=== PATIENT | female | born 1945 ===

== ENCOUNTER 2023-06-15 11:13 | Emergency (ER) | payer MEDICARE, BC ==
[2023-06-15 11:33] LABS: BILIRUBIN,URINE NEGATIVE (NEGATIVE); GLUCOSE, URINE (UA) NEGATIVE (NEGATIVE); KETONES,URINE (UA) TRACE mg/dL (NEGATIVE); LEUKOCYTE ESTERASE, URINE SMALL (NEGATIVE); NITRITE,URINE POSITIVE (NEGATIVE); OCCULT BLOOD,URINE SMALL (NEGATIVE); PROTEIN,URINE 30 mg/dL (NEGATIVE); UROBILINOGEN,URINE 0.2 (NORMAL) E.U./dL (NORMAL)
[2023-06-15 11:36] LABS: CLARITY,URINE CLOUDY (CLEAR)
[2023-06-15 11:39] LABS: BACTERIA,URINE Many /HPF (None Seen); RBC,URINE 0-5 /HPF (0-5); SQUAMOUS EPITHELIAL CELL,UR FEW Squamous (<= Few); WBC,URINE >25 /HPF (0-5)
[2023-06-15 11:52] LABS: BASOPHILS # (AUTO) 0.1 10^3/uL (0.0-0.1); BASOPHILS % (AUTO) 0.4 %; EOSINOPHILS # (AUTO) 0.1 10^3/uL (0.0-0.7); HCT - HEMATOCRIT 35.2 % (37.0-47.0); HGB - HEMOGLOBIN 11.7 g/dL (12.0-16.0); LYMPHOCYTES % (AUTO) 6.6 %; MEAN CORPUSCULAR HEMOGLOBIN 30.7 pg (27.0-31.0); MEAN CORPUSCULAR HGB CONC 33.2 g/dL (32.0-36.0); MEAN CORPUSCULAR VOLUME 92.4 fL (81.0-99.0); MEAN PLATELET VOLUME 8.7 fL (7.9-10.8); MONOCYTES # (AUTO) 1.6 10^3/uL (0.0-1.0); MONOCYTES % (AUTO) 10.8 %; NEUTROPHILS # (AUTO) 11.7 10^3/uL (1.5-6.6); NEUTROPHILS % (AUTO) 80.9 %; PLT - PLATELET COUNT 364 10^3/uL (130-450); RED BLOOD COUNT 3.81 10^6/uL (4.20-5.40); RED CELL DISTRIBUTION WIDTH 17.3 % (12.0-15.0); WHITE BLOOD COUNT 14.5 x10^3/uL (4.8-10.8)
[2023-06-15] MEDS ORDERED: SODIUM CHLORIDE 0.9% 1,000 ML IV STA (11:56)
--- NOTE | 2023-06-15 11:57 | ED Physician Documentation ---
History of Present Illness - Stated complaint Stated Complaint: - Chief complaint Chief Complaint: General - Additonal information Additional information: 77-year-old female presents to the emergency department for evaluation of dysuria and urinary urgency. The symptoms began 2 days ago when she completed her course of cephalexin for E. coli urinary tract infection. 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 She did not tolerate chemotherapy secondary to side effects. Patient was seen initially in this emergency department on June 02 for fatigue and urinary symptoms. At that time of the ED visit she received IV hydration. A urinalysis was suggestive of a urinary tract infection and she was given a gram of ceftriaxone. Patient was scheduled to follow-up with her oncologist the following day but it does not appear that antibiotics were ordered at the time of [place] [facility] [place]. Subsequently urine culture revealed a eaton sensitive E. coli for which I electronically ordered cephalexin on 05 June. Patient completed a 7-day course on June 13. She reports that while taking the antibiotics she had no urinary symptoms but about 12 hours after completing the course she began to have some dysuria urgency and vague left-sided belly and flank pain. She denies fevers or vomiting. Patient is scheduled to see hematology this upcoming week and had orders for CT imaging pending. I presentation the emergency department she is alert and very well-appearing. She has no fever, tachycardia or hypotension noted. Review of Systems Constitutional: denies: Fever Cardiac: denies: Chest pain / pressure, Palpitations Respiratory: denies: Dyspnea GI: reports: Abdominal Pain : reports: Dysuria, Frequency Skin: reports: Reviewed and negative Musculoskeletal: reports: Reviewed and negative PD PAST MEDICAL HISTORY - Present Medications Home Medications: Ambulatory Orders Medication Instructions Recorded Confirmed Ascorbic Acid [Vitamin C] 1,000 mg PO DAILY 04/15/23 06/03/23 Aspirin [Aspirin Regimen] 81 mg PO DAILY PM 04/15/23 06/03/23 Biotin [Pbun-Lvgg-Bijkq] 5,000 mcg PO BID 04/15/23 06/03/23 Calcium Carbonate [Calcium] 600 mg PO BID 04/15/23 06/03/23 Cholecalciferol (Vitamin D3) 50 mcg PO BID 04/15/23 06/03/23 [Vitamin D3] Losartan Potassium 25 mg PO DAILY 04/15/23 06/03/23 Magnesium 250 mg PO DAILY 04/15/23 06/03/23 Magnesium 250 mg PO DAILY 04/15/23 06/03/23 [place]-3/Dha/Epa/Fish Oil [Fish Oil 1 each PO DAILY 04/15/23 06/03/23 1,000 mg Softgel] Pramipexole Di-HCl [Mirapex] 0.125 mg PO UD 04/15/23 06/03/23 Vitamin E (Dl,Tocopheryl Acet) 180 mg PO DAILY 04/15/23 06/03/23 [Vitamin E] glucosamine HCL [Glucosamine HCl] 1,500 mg PO DAILY 04/15/23 06/03/23 Ondansetron [Ondansetron Odt] 8 mg PO Q6HR 05/28/23 06/03/23 cephALEXin [Keflex] 500 mg PO BID #14 cap 06/05/23 Amox/Clav 875/125 [Augmentin] 1 each PO Q12H #20 tablet 06/15/23 Ciprofloxacin HCl [Cipro] 500 mg PO BID #20 tablet 06/15/23 - Allergies Allergies/Adverse Reactions: Allergies Allergy/AdvReac Type Severity Reaction Status Date / Time oxaliplatin AdvReac Intermediate SOA/Blurred Verified 06/15/23 12:11 Vision/Throat swelling metronidazole [From Flagyl] AdvReac Unknown Verified 06/15/23 12:11 Sulfa (Sulfonamide AdvReac Unknown Verified 06/15/23 12:11 Antibiotics) PD ED PE NORMAL - General General: Alert and oriented X 3, No acute distress, Well developed/nourished - HEENT HEENT: Atraumatic, Moist mucous membranes - Neck Neck: Supple, no meningeal sign, No adenopathy - Cardiac Cardiac: RRR, No murmur - Respiratory Respiratory: No respiratory distress, Clear bilaterally - Abdomen Abdomen: Normal bowel sounds, Soft, Non tender (Very vague nonspecific nonperitoneal left-sided abdominal tenderness without guarding or rebound. No CVA tenderness elicited.) - Back Back: No CVA TTP - Derm Derm: Warm and dry - Extremities Extremities: No deformity - Neuro Neuro: Alert and oriented X 3 Eye Opening: Spontaneous Motor: Obeys Commands Verbal: Oriented GCS Score: 15 Results - Vitals Vitals: Vital Signs - 24 hr 06/15/23 06/15/23 11:24 13:16 Temperature 36.1 C L 35.8 C L Heart Rate 91 73 Respiratory 18 18 Rate Blood Pressure 128/82 H 94/58 L O2 Saturation 99 99 Oxygen O2 Source Room air - Labs Labs: Laboratory Tests 06/15/23 06/15/23 06/15/23 11:28 11:45 11:45 WBC 14.5 H RBC 3.81 L Hgb 11.7 L Hct 35.2 L MCV 92.4 MCH 30.7 MCHC 33.2 RDW 17.3 H Plt Count 364 MPV 8.7 Neut # (Auto) 11.7 H Lymph # (Auto) 1.0 L [place] # (Auto) 1.6 H Eos # (Auto) 0.1 Baso # (Auto) 0.1 Absolute Nucleated RBC 0.00 Nucleated RBC % 0.0 Sodium 131 L Potassium 3.8 Chloride 99 L Carbon Dioxide 26 Anion Gap 6.0 BUN 8 Creatinine 0.5 L Estimated GFR (MDRD) 120 Glucose 198 H Calcium 9.1 Total Bilirubin 0.5 AST 16 ALT 18 Alkaline Phosphatase 77 Total Protein 5.9 L Albumin 3.4 Globulin 2.5 Albumin/Globulin Ratio 1.4 Lipase 127 H Urine Color DARK YELLOW Urine Clarity CLOUDY Urine pH 6.0 Ur Specific [place] 1.025 Urine Protein 30 H Urine Glucose (UA) NEGATIVE Urine Ketones TRACE Urine Occult Blood SMALL H Urine Nitrite POSITIVE H Urine Bilirubin NEGATIVE Urine Urobilinogen 0.2 (NORMAL) Ur Leukocyte Esterase SMALL H Urine RBC 0-5 Urine WBC >25 H Ur Squamous Epith Cells FEW Squamous Urine Bacteria Many H Ur Microscopic Review INDICATED Urine Culture Comments INDICATED - Rads (name of study) CT abd pelvis w Relevant Findings:: Final report received CT chest Relevant Findings:: Final report received (Few nonspecific scattered pulmonary micronodules measuring less than 2 mm nonspecific. No evidence of metastatic disease within the chest.) PD Medical Decision Making - ED course Complexity details: reviewed results, re-evaluated patient, d/w patient ED course: As per the initial HPI 77-year-old female who has a history of adenocarcinoma of the appendix requiring bowel resection presents to the emergency department for urinary urgency frequency and left-sided abdominal pain. She was treated for an E. coli UTI starting on 05 June and completed a week of medication. Today in the emergency department she is alert and well-appearing. There is no fever. No tachycardia or hypotension. I did obtain CBC, electrolytes and urinalysis. Per my interpretation there is mild leukocytosis white count of 14,000. She does have some mild electrolyte derangement with sodium of 131 but essentially unchanged from baseline. Normal BUN and creatinine. Her blood glucose was 198 again on par with baseline. Her urinalysis was consistent with acute cystitis. Nitrite positive large amount of bacteria and WBCs. Does not appear contaminated. Culture is pending. Given the history of cancer and recurrent urinary symptoms with left-sided abdominal pain despite recent course of antibiotics we did elect to pursue CT imaging of the abdomen and pelvis which shows diverticulitis of the descending colon. No evidence of abscess or perforation. There was also incidental note made of fluid-filled small bowel loops that could be consistent with an ileus or small bowel obstruction. However I have low suspicion for ileus or bowel obstruction given that the patient has no vomiting or tenderness on the right side of the abdomen. I am in order to treat the urinary tract infection and diverticulitis she will be started on Augmentin and Cipro given her allergy profile and intolerance of Flagyl in the past. She is advised to clear liquid diet for the next 24 to 48 hours. We discussed the emergent return precautions which would include fevers, vomiting, increased pain on the left side of the abdomen or the development of new pain on the right side of the abdomen. She will continue to follow closely with her oncologist and PCP. Departure - Departure Disposition: 01 Home, Self Care Clinical Impression: Diverticulitis, History of malignant neoplasm of appendix Acute cystitis Qualifiers: Hematuria presence: without hematuria Qualified Code(s): N30.00 - Acute cystitis without hematuria Condition: Stable Record reviewed to determine appropriate education?: Yes Follow-Up: RAMSES EPPERSON MD [Primary Care Provider] - Prescriptions: Amox/Clav 875/125 [Augmentin] 1 each PO Q12H #20 tablet Ciprofloxacin HCl [Cipro] 500 mg PO BID #20 tablet Comments: Kelsey your labs today show that you continue to have a urinary tract infection. Because the Keflex did not cure the infection you should be started on a new antibiotic. The CT scan today however does show that you have diverticulitis of your descending colon. This is in the area of your abdomen where you are tender. In order to treat both the infection of the colon as well as the urine we will be starting you on 2 antibiotics. 1 is Cipro which she will take twice a day and the other is Augmentin which she will also take twice a day. Both of these antibiotics can cause diarrhea. I recommend that you take lactobacillus each day about a half an hour after taking the antibiotics. Please let your oncologist know that you had CT imaging of the chest abdomen and pelvis today while in the emergency department. Giving the findings of the diverticulitis they may elect to have a repeat CT scan done in several weeks to ensure resolution of this process. As also discussed at the bedside it does suggest that there is an ileus of the small bowel near where you had your surgery and resection. Over the next 24 hours I would like you to do a clear liquid diet. With the finding of diverticulitis it may be important to have a repeat colonoscopy after this flare has resolved to ensure that there is no mass or malignancy causing the diverticulitis which cannot always be seen on CAT scan. If at any point you find that you are having increasing pain especially on the left side, develop new pain especially on the right side of the abdomen, have any fevers or uncontrolled vomiting you do need to return immediately to the ER. Forms: PCP List
[2023-06-15 12:09] LABS: ALBUMIN 3.4 g/dL (3.2-5.5); ALBUMIN/GLOBULIN RATIO 1.4 (1.0-2.2); BILIRUBIN,TOTAL 0.5 mg/dL (0.2-1.0); CALCIUM 9.1 mg/dL (8.5-10.3); CREATININE 0.5 mg/dL (0.6-1.3); POTASSIUM 3.8 mmol/L (3.5-4.5); TOTAL PROTEIN 5.9 g/dL (6.4-8.9)
[2023-06-15] MEDS ORDERED: cefTRIAXone 1 GM VIAL IVP STA (12:24)
[2023-06-15] MEDS ORDERED: iohexoL-300 100 ML VIAL IVP ONE (13:16)
--- NOTE | 2023-06-15 13:37 | CT Report ---
PROCEDURE: CHEST W INDICATIONS: cancer CONTRAST: 100ml omni 300 TECHNIQUE: After the administration of intravenous contrast, 1 mm axial images were acquired from the pulmonary apices through the posterior costophrenic angles. Axial 5 mm soft tissue kernel reconstructions were performed as well as 8 mm axial MIP and coronal and sagittal 5 mm reformations. For radiation dose reduction, the following was used: automated exposure control, adjustment of mA and/or kV according to patient size. COMPARISON: None. FINDINGS: Image quality: Excellent. Lungs and pleura: No consolidation. Biapical pleural-parenchymal scarring. Mild dependent atelectasis . No pleural effusions. No pneumothorax. There are a few scattered pulmonary micronodules measuring less than 2 mm. Mediastinum: Heart size is normal. No pericardial effusion. No large vessel abnormality. No mediastin al adenopathy by size criteria. Right chest wall Port-A-Cath. Small hiatal hernia. Chest wall and lower neck: Thyroid is unremarkable. No axillary or supraclavicular adenopathy by size . Bones: No aggressive osseous abnormality. Upper Abdomen: Refer to separately dictated CT of the abdomen and pelvis. IMPRESSION: 1.There are a few nonspecific scattered pulmonary micronodules measuring less than 2 mm, nonspecific. 2.No definite evidence of metastatic disease within the chest. Reviewed by: Santana Lockett MD on 06/15/2023 1:36 PM PDT Approved by: Santana Lockett MD on 06/15/2023 1:36 PM PDT Station ID: [id number]
--- NOTE | 2023-06-15 13:45 | CT Report ---
PROCEDURE: ABDOMEN/PELVIS W INDICATIONS: hx of adenocarcinoma with mets and resection CONTRAST: 100ml omni 300 TECHNIQUE: After the administration of intravenous contrast, 5 mm thick sections acquired from the diaphragms to the symphysis. 5 mm thick coronal and sagittal reformats were acquired. For radiation dose reducti on, the following was used: automated exposure control, adjustment of mA and/or kV according to mariaelena ent size. COMPARISON: None FINDINGS: Image quality: Excellent. Lung bases and heart: Refer to separately dictated CT of the chest. Liver: There is a 7 mm hypodensity in the left hepatic lobe which is nonspecific (2/21). Additional i ll-defined subcentimeter hepatic hypodensities along the inferior right hepatic lobe are indeterminat e (2/40, 41). Scattered hepatic simple cysts are noted. Gallbladder and biliary tree: No radiopaque stones or wall thickening. No biliary dilation. Spleen: No splenomegaly. Pancreas: No pancreatic ductal dilation. Adrenals: No adrenal nodule. Kidneys and ureters: No hydronephrosis. No renal cystic lesion which requires follow up. No solid mas s. Bowel and peritoneum: Scattered diverticula. There is wall thickening and surrounding inflammatory ch anges of the descending colon, consistent with acute diverticulitis. No extraluminal gas or organized fluid collections. Prominent fluid-filled small bowel in the right lower quadrant and pelvis measuri ng up to 2.4 cm. Postsurgical changes of the cecum. Lymph nodes: No central or retroperitoneal adenopathy. Vessels: No infrarenal aortic aneurysm. Atherosclerotic vascular calcifications. PELVIS Reproductive organs: Unremarkable. Bladder: No abnormal wall thickening, accounting for underdistension. Pelvic lymph nodes: No pelvic adenopathy by size criteria. Bones: No aggressive osseous abnormality. Other: No significant ventral or inguinal hernia. IMPRESSION: 1.Acute diverticulitis of the descending colon. No actual gas or organized fluid collections. 2.Prominent fluid-filled loops of small bowel within the right lower quadrant and pelvis without esteban sition point. The prominent loops of small bowel extend to the resection site at the cecum. Findings are nonspecific and may represent ileus, partial obstruction is not entirely excluded and clinical co rrelation is recommended. 3.Indeterminate subcentimeter hypodensities within the liver, may represent simple cysts however meta static disease is not excluded and attention on follow-up is recommended. Reviewed by: Santana Lockett MD on 06/15/2023 1:44 PM PDT Approved by: Santana Lockett MD on 06/15/2023 1:44 PM PDT Station ID: [id number]
[2023-06-15 13:56] VITALS: BP 128/92; O2SAT 97
== END 2023-06-15 14:23 | disposition home or self-care (01) ==
LOC: ED 11:13
DX: N30.00 Acute cystitis without hematuria (principal); K57.92 Diverticulitis of intestine, part unspecified, without perforation or abscess without bleeding; C18.1 Malignant neoplasm of appendix; Z79.82 Long term (current) use of aspirin; Z79.899 Other long term (current) drug therapy
CPT/HCPCS: 36415; 71260; 74177; 80053; 81001; 83690; 85025; 87040; 87086; 87181; 96374; 96375; 99284; Q9967; 81003

== ENCOUNTER 2024-04-06 19:21 | Emergency (ER) | payer MEDICARE, BC ==
[2024-04-06 20:24] LABS: BASOPHILS % (AUTO) 0.1 %; EOSINOPHILS % (AUTO) 0.1 %; HGB - HEMOGLOBIN 10.2 g/dL (12.0-16.0); LYMPHOCYTES # (AUTO) 0.4 10^3/uL (1.5-3.5); LYMPHOCYTES % (AUTO) 4.8 %; MEAN CORPUSCULAR HEMOGLOBIN 27.9 pg (27.0-31.0); MEAN CORPUSCULAR HGB CONC 31.9 g/dL (32.0-36.0); MEAN CORPUSCULAR VOLUME 87.7 fL (81.0-99.0); MEAN PLATELET VOLUME 8.5 fL (7.9-10.8); MONOCYTES # (AUTO) 0.7 10^3/uL (0.0-1.0); MONOCYTES % (AUTO) 8.2 %; NEUTROPHILS # (AUTO) 7.6 10^3/uL (1.5-6.6); NEUTROPHILS % (AUTO) 86.6 %; PLT - PLATELET COUNT 291 10^3/uL (130-450); RED BLOOD COUNT 3.65 10^6/uL (4.20-5.40); RED CELL DISTRIBUTION WIDTH 13.3 % (12.0-15.0); WHITE BLOOD COUNT 8.7 x10^3/uL (4.8-10.8)
[2024-04-06 20:42] LABS: ALBUMIN 3.8 g/dL (3.2-5.5); ALBUMIN/GLOBULIN RATIO 1.6 (1.0-2.2); BILIRUBIN,TOTAL 0.3 mg/dL (0.2-1.0); CALCIUM 8.8 mg/dL (8.5-10.3); CREATININE 0.6 mg/dL (0.6-1.3); POTASSIUM 3.6 mmol/L (3.5-4.5); TOTAL PROTEIN 6.2 g/dL (6.4-8.9)
[2024-04-06 20:45] LABS: TROPONIN I HIGH SENSITIVITY 5.1 ng/L (2.3-14.8)
[2024-04-06] MEDS: SODIUM CHLORIDE 0.9% 1,000 ML IV STA (22:03)
[2024-04-06 22:18] LABS: B. PARAPERTUSSIS- RESP PCR PAN NOT DETECTED; B. PERTUSSIS- RESP PCR PANEL NOT DETECTED; C. PNEUMONIAE- RESP PCR PANEL NOT DETECTED; CORONAVIRUS 229E-RESP PCR NOT DETECTED; CORONAVIRUS HKU1-RESP PCR NOT DETECTED; CORONAVIRUS NL63-RESP PCR NOT DETECTED; CORONAVIRUS OC43-RESP PCR NOT DETECTED; HUMAN METAPNEUMOVIRUS NOT DETECTED; INFLUENZA A H3- RESP PCR PANEL DETECTED; INFLUENZA B - RESP PCR PANEL NOT DETECTED; M. PNEUMONIAE- RESP PCR PANEL NOT DETECTED; PARAINFLUENZA VIRUS 1 NOT DETECTED; PARAINFLUENZA VIRUS 2 NOT DETECTED; PARAINFLUENZA VIRUS 3 NOT DETECTED; PARAINFLUENZA VIRUS 4 NOT DETECTED; RHINOVIRUS/ENTEROVIRUS NOT DETECTED; RSV- RESP PCR PANEL NOT DETECTED; SARS-CoV-2 -RESP PCR PANEL NOT DETECTED
--- NOTE | 2024-04-06 22:42 | ED Physician Documentation ---
History of Present Illness - Stated complaint Stated Complaint: COUGH/FEVER - Chief complaint Chief Complaint: Resp - History obtained from History obtained from: Patient - Additonal information Additional information: HPI from patient. Patient c/o productive cough, chest congestion, generalized weakness. Symptoms started 2-3 days ago. Denies fever but has not taken temperature at home. Patient is scheduled to start chemotherapy this coming Friday. 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 - Present Medications Home Medications: Ambulatory Orders Medication Instructions Recorded Confirmed Ascorbic Acid [Vitamin C] 1,000 mg PO DAILY 04/15/23 02/24/24 Aspirin [Aspirin Regimen] 81 mg PO DAILY PM 04/15/23 02/24/24 Biotin [Nqan-Yzku-Zpooc] 5,000 mcg PO BID 04/15/23 02/24/24 Calcium Carbonate [Calcium] 600 mg PO BID 04/15/23 02/24/24 Cholecalciferol (Vitamin D3) 50 mcg PO BID 04/15/23 02/24/24 [Vitamin D3] Losartan Potassium 25 mg PO DAILY 04/15/23 02/24/24 Magnesium 250 mg PO DAILY 04/15/23 02/24/24 Magnesium 250 mg PO DAILY 04/15/23 02/24/24 [place]-3/Dha/Epa/Fish Oil [Fish Oil 1 each PO DAILY 04/15/23 02/24/24 1,000 mg Softgel] Pramipexole Di-HCl [Mirapex] 0.125 mg PO UD 04/15/23 02/24/24 Vitamin E (Dl,Tocopheryl Acet) 180 mg PO DAILY 04/15/23 02/24/24 [Vitamin E] glucosamine HCL [Glucosamine HCl] 1,500 mg PO DAILY 04/15/23 02/24/24 Ondansetron [Ondansetron Odt] 8 mg PO Q6HR 05/28/23 02/24/24 Ondansetron Odt [Zofran Odt] 4 mg TL Q6H PRN #10 tablet 04/07/24 Oseltamivir [Tamiflu] 75 mg PO BID #9 cap 04/07/24 - Allergies Allergies/Adverse Reactions: Allergies Allergy/AdvReac Type Severity Reaction Status Date / Time oxaliplatin AdvReac Intermediate SOA/Blurred Verified 06/15/23 12:11 Vision/Throat swelling metronidazole [From Flagyl] AdvReac Unknown Verified 06/15/23 12:11 Sulfa (Sulfonamide AdvReac Unknown Verified 06/15/23 12:11 Antibiotics) - Social History Does the pt smoke?: No Smoking Status: Never smoker Does the pt drink ETOH?: No Does the pt have substance abuse?: No - Immunizations Immunizations are current?: Yes - POLST Patient has POLST: No PD ED PE NORMAL - Vitals Vital signs reviewed: Yes - General General: Alert and oriented X 3, No acute distress (NAD, speaks in full sentences), Well developed/nourished - Neck Neck: Supple, no meningeal sign - Cardiac Cardiac: RRR, No murmur - Respiratory Respiratory: No respiratory distress - Abdomen Abdomen: Soft, Non tender PD ED PE EXPANDED - Respiratory Respiratory: Rhonchi (RLL) Results - Vitals Vitals: Oxygen O2 Source Room air - Labs Labs: Laboratory Tests 04/06/24 04/06/24 04/06/24 20:19 20:19 20:45 WBC 8.7 RBC 3.65 L Hgb 10.2 L Hct 32.0 L MCV 87.7 MCH 27.9 MCHC 31.9 L RDW 13.3 Plt Count 291 MPV 8.5 Neut # (Auto) 7.6 H Lymph # (Auto) 0.4 L [place] # (Auto) 0.7 Eos # (Auto) 0.0 Baso # (Auto) 0.0 Absolute Nucleated RBC 0.00 Nucleated RBC % 0.0 Sodium 129 L Potassium 3.6 Chloride 97 L Carbon Dioxide 25 Anion Gap 7.0 BUN 8 Creatinine 0.6 Estimated GFR (MDRD) 97 Glucose 191 H Calcium 8.8 Total Bilirubin 0.3 AST 19 ALT 17 Alkaline Phosphatase 54 Troponin I High Sens 5.1 Total Protein 6.2 L Albumin 3.8 Globulin 2.4 Albumin/Globulin Ratio 1.6 Lipase 20 Nasal Adenovirus (PCR) NOT DETECTED Nasal B. parapertussis DNA (PCR) NOT DETECTED Nasal Coronavir 229E PCR NOT DETECTED Nasal Coronavir HKU1 PCR NOT DETECTED Nasal Coronavir NL63 PCR NOT DETECTED Nasal Coronavir OC43 PCR NOT DETECTED Nasal Enterovir/Rhinovir PCR NOT DETECTED Nasal Influenza A H3 PCR DETECTED A Nasal Influenza B PCR NOT DETECTED Nasal Parainfluen 1 PCR NOT DETECTED Nasal Parainfluen 2 PCR NOT DETECTED Nasal Parainfluen 3 PCR NOT DETECTED Nasal Parainfluen 4 PCR NOT DETECTED Nasal RSV (PCR) NOT DETECTED Nasal B.pertussis DNA PCR NOT DETECTED Nasal C.pneumoniae (PCR) NOT DETECTED Robi Human Metapneumo PCR NOT DETECTED Nasal M.pneumoniae (PCR) NOT DETECTED Nasal SARS-CoV-2 (PCR) NOT DETECTED - Rads (name of study) chest xray Relevant Findings:: Prelim report reviewed, See rad report PD Medical Decision Making - ED course Complexity details: reviewed results, re-evaluated patient, considered differential, d/w patient ED course: No concerning findings on CBC (h/h slightly low, hgb 10.2) nor ER abdominal panel (mild hyponatremia, Na 129; mild hyperglycemia, glucose 191). Respiratory PCR panel is POSITIVE for INFLUENZA A. She is given 1 liter NS for both purposes of rehydration as well as for the mild hyponatremia. CXR undertaken due to abnormal breath sounds but the study is normal (including no evidence of pneumonia). Results d/w patient, return precautions reviewed. Given 75mg PO oseltamivir and prescribed 5-day course of same. Late in ED stay she is given 4mg TL zofran for nausea. Departure - Departure Disposition: 01 Home, Self Care Clinical Impression: Influenza A Condition: Good Instructions: ED Flu, Medication: Tamiflu (Oseltamivir) Follow-Up: RAMSES EPPERSON MD [Primary Care Provider] - Prescriptions: Oseltamivir [Tamiflu] 75 mg PO BID #9 cap Ondansetron Odt [Zofran Odt] 4 mg TL Q6H PRN #10 tablet PRN Reason: Nausea / Vomiting Comments: There are no abnormalities on tonight's chest x-ray; specifically, no evidence of pneumonia. You tested positive tonight for influenza A. This would certainly account for your symptoms. You were given the first dose of an anti-viral medication (oseltamivir) in the emergency department, and I have electronically submitted as prescription for the rest of a 5-day course of this medication to the [facility] in [place]. As we discussed, your sodium was slightly below the normal range as was your red blood cell level; neither of these findings were to an extent that is concerning from the emergency perspective, but you should mention both these findings to your primary care provider as well as your oncologist. You should also contact your oncology group's office in the morning when they are open and let them know about your positive test for influenza to see if that will change the plans for chemotherapy on Friday. Discharge Date/Time: 04/07/24 01:04
[2024-04-06] MEDS: OSELTAMIVIR 75 MG CAPSULE PO STA (23:22)
[2024-04-06 23:32] VITALS: O2SAT 98
[2024-04-07 00:58] VITALS: BP 124/68
[2024-04-07] MEDS: ONDANSETRON ODT 4 MG TABLET TL STA (01:04)
--- NOTE | 2024-04-07 01:05 | XRAY Report ---
PROCEDURE: Chest 1V INDICATIONS: cough, RLL rhonchi TECHNIQUE: One view of the chest was acquired. COMPARISON: CT chest dated 12/09/2023 FINDINGS: Surgical changes and devices: Tunneled right port device is in place.. Lungs and pleura: Diffuse interstitial prominence. Patchy ill-defined opacities of the bilateral riri g bases. No substantial pleural effusion. No pneumothorax. No dense consolidation. Mediastinum: Mediastinal contours appear normal. Heart size is normal. Bones and chest wall: No suspicious bony lesions. Overlying soft tissues appear unremarkable. IMPRESSION: Diffuse interstitial prominence with patchy ill-defined opacities of the bilateral lung bases. Findin gs may represent atelectasis and/or possible pneumonia. Recommend follow-up chest radiograph 4-6 weeks after treatment to document resolution of findings and /or return to baseline exam. Reviewed by: Liam Sarah MD on 04/07/2024 1:03 AM PDT Approved by: Liam Sarah MD on 04/07/2024 1:03 AM PDT Station ID: [id number]
== END 2024-04-07 01:04 | disposition home or self-care (01) ==
LOC: ED 19:21
DX: J10.1 Influenza due to other identified influenza virus with other respiratory manifestations (principal); E87.1 Hypo-osmolality and hyponatremia; D64.9 Anemia, unspecified; C67.9 Malignant neoplasm of bladder, unspecified
CPT/HCPCS: 36415; 71045; 80053; 83690; 84484; 85025; 87633; 96360; 96361; 99284; A9270